=== PATIENT | male | born 1960 | race Two or more races ===

== ENCOUNTER 2016-11-09 21:54 | Emergency (ER) | payer MEDICAID ==
[~2016-11-09] VITALS: Ht 177.8 cm; Wt 65.8 kg
[2016-11-10 01:14] LABS: Basophils # (auto) 0.2 uL; Basophils % (auto) 2.4 % (0.0-2.0); Eosinophils # (auto) 0.1 uL; Eosinophils % (auto) 1.3 % (0.0-7.0); Hematocrit 46.3 % (41.0-53.0); Hemoglobin 15.1 g/dL (13.5-17.5); Lymphocytes # (auto) 1.3 uL; Lymphocytes % (auto) 18.8 % (10.0-50.0); Mean Corpuscular Hemoglobin 28.7 pg (28.0-32.0); Mean Corpuscular Hgb Conc. 32.5 g/dL (32.0-36.0); Mean Corpuscular Volume 88.2 fL (80.0-100.0); Mean Platelet Volume 7.5 fL (7.4-10.4); Monocytes # (auto) 0.3 uL; Monocytes % (auto) 4.2 % (0.0-12.0); Neutrophils # (auto) 4.9 uL; Neutrophils % (auto) 73.3 % (37.0-80.0); Platelet Count (auto) 183 10^3/uL (140-450); Red Cell Distribution Width 12.5 % (11.6-16.0); White Blood Cell 6.8 10^3/uL (4.4-10.8)
[2016-11-10 01:25] LABS: Albumin 3.7 g/dL (3.4-5.0)
[2016-11-10 01:32] LABS: Bilirubin, Total 0.9 mg/dL (0.2-1.0); Total Protein 6.7 g/dL (6.4-8.2)
[2016-11-10 08:17] VITALS: BP 108/74
== END 2016-11-10 10:09 | disposition home or self-care (01) ==
LOC: EDBD 21:54 → ER 22:01
DX: F32.9 Major depressive disorder, single episode, unspecified (principal); Z91.19 Patient's noncompliance with other medical treatment and regimen
CPT/HCPCS: 36415; 80053; 85025

== ENCOUNTER 2020-10-13 17:15 | Emergency (ER) | payer MEDICAID ==
[~2020-10-13] VITALS: Ht 185.4 cm; Wt 65.8 kg
[2020-10-13 18:34] LABS: Basophils # (auto) 0 10 ^3/uL (0-0.2); Eosinophils # (auto) 0 10 ^3/uL (0-0.8); Eosinophils % (auto) 1.1 % (0.0-7.0); Hematocrit 47.1 % (41.0-53.0); Hemoglobin 16.2 g/dL (13.5-17.5); Lymphocytes # (auto) 0.8 10 ^3/uL (0.4-5.4); Lymphocytes % (auto) 19.3 % (10.0-50.0); Mean Corpuscular Hemoglobin 29.1 pg (28.0-32.0); Mean Corpuscular Hgb Conc. 34.3 g/dL (32.0-36.0); Mean Corpuscular Volume 84.8 fL (80.0-100.0); Monocytes # (auto) 0.3 10 ^3/uL (0-1.3); Monocytes % (auto) 8.1 % (0.0-12.0); Neutrophils # (auto) 2.8 10 ^3/uL (1.6-8.6); Neutrophils % (auto) 70.5 % (37.0-80.0); Nucleated Red Blood Cells % 0.5 %; Platelet Count (auto) 219 10^3/uL (140-450); Red Blood Cells 5.55 10^6/uL (4.5-5.90); White Blood Cell 3.9 10^3/uL (4.4-10.8)
[2020-10-13] MEDS ORDERED: ACETAMINOPHEN 325 MG TAB PO ONE (18:45)
[2020-10-13 18:50] LABS: Albumin 3.9 g/dL (3.4-5.0); Potassium 3.5 mmol/L (3.5-5.1); Salicylate 2.1 mg/dL (2.8-20.0)
[2020-10-13 18:51] LABS: Acetaminophen < 2.0 ug/mL (10-30)
[2020-10-13 18:59] LABS: BUN/Creatinine Ratio 17.2; Bilirubin, Total 0.9 mg/dL (0.2-1.0); Total Protein 7.8 g/dL (6.4-8.2)
[2020-10-21 15:00] VITALS: BP 111/79
== END 2020-10-21 16:40 | disposition home or self-care (01) ==
LOC: ER 17:15
DX: M54.5 Low back pain (principal); Z20.822 Contact with and (suspected) exposure to COVID-19
CPT/HCPCS: 36415; 72131; 80053; 80329; 82962; 85025; 87426; 97163; 99285; C9803; U0003